=== PATIENT | male | born 1970 | race Caucasian/White ===

== ENCOUNTER 2017-09-14 05:16 | Emergency (ER) | payer MEDICAID ==
[~2017-09-14] VITALS: Ht 177.8 cm; Wt 97.5 kg
[2017-09-14 05:22] VITALS: BP 155/90
== END 2017-09-14 06:33 | disposition left against medical advice (07) ==
LOC: ER 05:18
DX: M79.644 Pain in right finger(s) (principal); Z53.21 Procedure and treatment not carried out due to patient leaving prior to being seen by health care provider
CPT/HCPCS: 73140

== ENCOUNTER 2017-09-14 08:33 | Emergency (ER) | payer MEDICAID ==
[~2017-09-14] VITALS: Ht 177.8 cm; Wt 97.5 kg
[2017-09-14 10:42] VITALS: BP 139/88
== END 2017-09-14 11:09 | disposition home or self-care (01) ==
LOC: ER 08:33
DX: L03.011 Cellulitis of right finger (principal); K21.9 Gastro-esophageal reflux disease without esophagitis; F17.210 Nicotine dependence, cigarettes, uncomplicated; Z88.1 Allergy status to other antibiotic agents